=== PATIENT | female | born 1980 | race Caucasian/White ===

== ENCOUNTER 2016-09-11 18:11 | Emergency (ER) | payer BC, MEDICAID ==
[2011-12-23 06:38] VITALS: BMI 22.5
[2016-09-11 19:05] LABS: BASOPHILS 0.3 % (0-2); EOSINOPHILS 1.5 % (0-7); HEMOGLOBIN 12.5 g/dL (12-16); IMMATURE GRANULOCYTES 0.2 % (0-5); LYMPHOCYTES 48.9 % (15-50); MCHC 33.8 g/dL (31.0-37.0); MCV 100.5 fL (80.0-100.0); MEAN PLATELET VOLUME 9.4 fL (7.4-10.4); NEUTROPHILS 40.1 % (40-80); PLATELET COUNT 384 10x3/uL (130-400); RBC 3.68 10x6/uL (4.00-5.40); RDW 13.6 % (11.5-14.5); WBC 8.7 10x3/uL (4.8-10.8)
[2016-09-11 19:14] LABS: HCG SERUM NEGATIVE (NEGATIVE)
[2016-09-11 19:27] LABS: ALBUMIN 4.1 g/dL (3.4-5.0); ALKALINE PHOSPHATASE 43 U/L (46-116); ALT (SGPT) 18 U/L (10-68); CALC OSMOLALITY 276 mosm/kg (275-300); CALCIUM 9.1 mg/dL (8.5-10.1); CHLORIDE - SERUM 104 mmol/L (98-107); CREATININE - SERUM 0.6 mg/dL (0.6-1.3); GLUCOSE 87 mg/dL (74-106); PROTEIN - SERUM 6.9 g/dL (6.4-8.2); SODIUM 138 mmol/L (136-145); UREA NITROGEN 17 mg/dL (7-18); eGFR NON AFRICAN AMERICAN > 90 mL/min (90-120)
[2016-09-11 19:29] LABS: POTASSIUM - SERUM 3.9 mmol/L (3.5-5.1)
[2016-09-11 19:45] LABS: APPEARANCE CLEAR (CLEAR); BILIRUBIN NEGATIVE (NEGATIVE); COLOR YELLOW (YELLOW); GLUCOSE NEGATIVE (NEGATIVE); KETONE NEGATIVE (NEGATIVE); LEUKOCYTE ESTERASE NEGATIVE (NEGATIVE); NITRITE NEGATIVE (NEGATIVE); PROTEIN NEGATIVE (NEGATIVE); UROBILINOGEN NORMAL (NORMAL)
[2016-09-11 19:47] LABS: BACTERIA FEW /hpf (NONE SEEN); EPITHELIAL CELLS 0-5 /hpf (0-5); RED CELLS - URINE 0-5 /hpf (0-5); WHITE CELLS - URINE OCC /hpf (0-5)
== END 2016-09-11 20:50 | disposition home or self-care (01) ==
LOC: D.ER 18:11
PROVIDERS: Emergency Medicine; Nurse Practitioner Family
DX: R10.9 Unspecified abdominal pain (principal); K59.00 Constipation, unspecified; K50.90 Crohn's disease, unspecified, without complications

== ENCOUNTER 2016-12-26 03:14 | Emergency (ER) | payer MEDICAID ==
[2011-12-23 06:38] VITALS: BMI 22.5
[2016-12-26 03:36] LABS: BASOPHILS 0.1 % (0-2); EOSINOPHILS 0 % (0-7); HEMATOCRIT 35.8 % (36.0-48.0); IMMATURE GRANULOCYTES 0.2 % (0-5); LYMPHOCYTES 6.9 % (15-50); MCHC 33.5 g/dL (31.0-37.0); MCV 98.4 fL (80.0-100.0); MEAN PLATELET VOLUME 10.1 fL (7.4-10.4); MONOCYTES 3.4 % (2-11); NEUTROPHILS 89.4 % (40-80); PLATELET COUNT 380 10x3/uL (130-400); RBC 3.64 10x6/uL (4.00-5.40); RDW 12.2 % (11.5-14.5); WBC 12.9 10x3/uL (4.8-10.8)
[2016-12-26 03:49] LABS: HCG SERUM NEGATIVE (NEGATIVE)
[2016-12-26 03:54] LABS: ALBUMIN 3.7 g/dL (3.4-5.0); ALKALINE PHOSPHATASE 52 U/L (46-116); ALT (SGPT) 17 U/L (10-68); CALC OSMOLALITY 279 mosm/kg (275-300); CALCIUM 8.6 mg/dL (8.5-10.1); CARBON DIOXIDE 23.1 mmol/L (21.0-32.0); CHLORIDE - SERUM 105 mmol/L (98-107); CREATININE - SERUM 0.8 mg/dL (0.6-1.3); GLUCOSE 155 mg/dL (74-106); POTASSIUM - SERUM 4.2 mmol/L (3.5-5.1); PROTEIN - SERUM 6.5 g/dL (6.4-8.2); SODIUM 138 mmol/L (136-145); UREA NITROGEN 16 mg/dL (7-18); eGFR NON AFRICAN AMERICAN 86 mL/min (90-120)
== END 2016-12-26 05:34 | disposition home or self-care (01) ==
LOC: D.ER 03:14
PROVIDERS: Emergency Medicine
DX: K50.90 Crohn's disease, unspecified, without complications (principal)

== ENCOUNTER 2017-01-24 21:53 | Emergency (ER) | payer MEDICAID ==
[2011-12-23 06:38] VITALS: BMI 22.5
[2017-01-24 23:08] LABS: BASOPHILS 0.3 % (0-2); EOSINOPHILS 1.3 % (0-7); HEMATOCRIT 37.8 % (36.0-48.0); HEMOGLOBIN 12.9 g/dL (12-16); IMMATURE GRANULOCYTES 0.3 % (0-5); LYMPHOCYTES 47.1 % (15-50); MCH 32.4 pg (26.0-34.0); MCHC 34.1 g/dL (31.0-37.0); MEAN PLATELET VOLUME 9.8 fL (7.4-10.4); MONOCYTES 6.6 % (2-11); NEUTROPHILS 44.4 % (40-80); PLATELET COUNT 332 10x3/uL (130-400); RBC 3.98 10x6/uL (4.00-5.40); RDW 12.4 % (11.5-14.5); WBC 6.8 10x3/uL (4.8-10.8)
[2017-01-24 23:23] LABS: ALBUMIN 4.2 g/dL (3.4-5.0); ALKALINE PHOSPHATASE 49 U/L (46-116); ALT (SGPT) 19 U/L (10-68); AMYLASE - SERUM 69 U/L (25-115); CALC OSMOLALITY 279 mosm/kg (275-300); CALCIUM 9.3 mg/dL (8.5-10.1); CARBON DIOXIDE 25.2 mmol/L (21.0-32.0); CHLORIDE - SERUM 106 mmol/L (98-107); CREATININE - SERUM 0.7 mg/dL (0.6-1.3); GLUCOSE 93 mg/dL (74-106); LIPASE 414 U/L (73-393); PROTEIN - SERUM 7.1 g/dL (6.4-8.2); SODIUM 139 mmol/L (136-145); UREA NITROGEN 17 mg/dL (7-18); eGFR NON AFRICAN AMERICAN > 90 mL/min (90-120)
[2017-01-25 01:14] LABS: APPEARANCE CLEAR (CLEAR); BILIRUBIN NEGATIVE (NEGATIVE); COLOR YELLOW (YELLOW); GLUCOSE NEGATIVE (NEGATIVE); KETONE NEGATIVE (NEGATIVE); LEUKOCYTE ESTERASE NEGATIVE (NEGATIVE); NITRITE NEGATIVE (NEGATIVE); PROTEIN NEGATIVE (NEGATIVE); UROBILINOGEN NORMAL (NORMAL)
== END 2017-01-25 01:30 | disposition home or self-care (01) ==
LOC: D.ER 21:53
PROVIDERS: Family Medicine
DX: R19.7 Diarrhea, unspecified (principal); K50.918 Crohn's disease, unspecified, with other complication

== ENCOUNTER 2017-01-30 20:17 | Emergency (ER) | payer MEDICAID ==
[2011-12-23 06:38] VITALS: BMI 22.5
[2017-01-30 20:40] LABS: BASOPHILS 0.2 % (0-2); EOSINOPHILS 1.6 % (0-7); HEMATOCRIT 39.4 % (36.0-48.0); HEMOGLOBIN 13.1 g/dL (12-16); IMMATURE GRANULOCYTES 0.7 % (0-5); LYMPHOCYTES 37.7 % (15-50); MCH 32.1 pg (26.0-34.0); MCHC 33.2 g/dL (31.0-37.0); MCV 96.6 fL (80.0-100.0); MEAN PLATELET VOLUME 9.8 fL (7.4-10.4); MONOCYTES 9.8 % (2-11); PLATELET COUNT 320 10x3/uL (130-400); RBC 4.08 10x6/uL (4.00-5.40); RDW 12.7 % (11.5-14.5); WBC 9.9 10x3/uL (4.8-10.8)
[2017-01-30 21:02] LABS: APPEARANCE CLEAR (CLEAR); BILIRUBIN NEGATIVE (NEGATIVE); COLOR YELLOW (YELLOW); GLUCOSE NEGATIVE (NEGATIVE); KETONE NEGATIVE (NEGATIVE); NITRITE NEGATIVE (NEGATIVE); PROTEIN NEGATIVE (NEGATIVE); UROBILINOGEN NORMAL (NORMAL)
[2017-01-30 21:04] LABS: WHITE CELLS - URINE 0-5 /hpf (0-5)
[2017-01-30 21:06] LABS: BACTERIA FEW /hpf (NONE SEEN); HCG URINE NEGATIVE (NEGATIVE)
[2017-01-30 21:07] LABS: ALBUMIN 3.8 g/dL (3.4-5.0); ANION GAP 13.3 mmol/L (8-16); BILIRUBIN - TOTAL 0.26 mg/dL (0.2-1.3); CARBON DIOXIDE 23.8 mmol/L (21.0-32.0); POTASSIUM - SERUM 4.1 mmol/L (3.5-5.1)
== END 2017-01-30 22:42 | disposition home or self-care (01) ==
LOC: D.ER 20:17
PROVIDERS: Family Medicine
DX: K50.918 Crohn's disease, unspecified, with other complication (principal)

== ENCOUNTER 2017-02-05 19:58 | Emergency (ER) | payer MEDICAID ==
[2011-12-23 06:38] VITALS: BMI 22.5
[2017-02-05 20:57] LABS: BASOPHILS 0.2 % (0-2); EOSINOPHILS 1.7 % (0-7); HEMATOCRIT 37.3 % (36.0-48.0); HEMOGLOBIN 12.4 g/dL (12-16); IMMATURE GRANULOCYTES 0.7 % (0-5); MCH 32.1 pg (26.0-34.0); MCHC 33.2 g/dL (31.0-37.0); MCV 96.6 fL (80.0-100.0); MEAN PLATELET VOLUME 9.6 fL (7.4-10.4); MONOCYTES 11.2 % (2-11); NEUTROPHILS 51.2 % (40-80); PLATELET COUNT 286 10x3/uL (130-400); RBC 3.86 10x6/uL (4.00-5.40); RDW 13.3 % (11.5-14.5); WBC 9.1 10x3/uL (4.8-10.8)
[2017-02-05 21:08] LABS: HCG SERUM NEGATIVE (NEGATIVE)
[2017-02-05 21:12] LABS: ALBUMIN 3.6 g/dL (3.4-5.0); ANION GAP 10.3 mmol/L (8-16); BILIRUBIN - TOTAL 0.26 mg/dL (0.2-1.3); CALCIUM 8.5 mg/dL (8.5-10.1); CARBON DIOXIDE 27.8 mmol/L (21.0-32.0); CREATININE - SERUM 1.1 mg/dL (0.6-1.3); POTASSIUM - SERUM 4.1 mmol/L (3.5-5.1); PROTEIN - SERUM 6.8 g/dL (6.4-8.2)
[2017-02-05 21:39] LABS: APPEARANCE CLEAR (CLEAR); BILIRUBIN NEGATIVE (NEGATIVE); COLOR YELLOW (YELLOW); GLUCOSE NEGATIVE (NEGATIVE); KETONE NEGATIVE (NEGATIVE); NITRITE NEGATIVE (NEGATIVE); PROTEIN NEGATIVE (NEGATIVE); UROBILINOGEN NORMAL (NORMAL)
[2017-02-05 21:45] LABS: EPITHELIAL CELLS 0-5 /hpf (0-5); RED CELLS - URINE 0-5 /hpf (0-5)
[2017-02-05 21:46] LABS: BACTERIA FEW /hpf (NONE SEEN)
== END 2017-02-06 01:40 | disposition home or self-care (01) ==
LOC: D.ER 19:58
PROVIDERS: Family Medicine
DX: R10.9 Unspecified abdominal pain (principal); K50.919 Crohn's disease, unspecified, with unspecified complications

== ENCOUNTER 2017-03-29 17:46 | Emergency (ER) | payer MEDICAID ==
[2011-12-23 06:38] VITALS: BMI 22.5
[2017-03-29 18:48] LABS: BASOPHILS 0.6 % (0-2); EOSINOPHILS 17.1 % (0-7); HEMATOCRIT 37.4 % (36.0-48.0); HEMOGLOBIN 12.6 g/dL (12-16); IMMATURE GRANULOCYTES 0.3 % (0-5); LYMPHOCYTES 37.5 % (15-50); MCH 31.8 pg (26.0-34.0); MCHC 33.7 g/dL (31.0-37.0); MCV 94.4 fL (80.0-100.0); MONOCYTES 8.2 % (2-11); NEUTROPHILS 36.3 % (40-80); RBC 3.96 10x6/uL (4.00-5.40); RDW 13.2 % (11.5-14.5); WBC 10.8 10x3/uL (4.8-10.8)
[2017-03-29 18:59] LABS: PLATELET COUNT 377 10x3/uL (130-400)
[2017-03-29 19:05] LABS: ALBUMIN 3.9 g/dL (3.4-5.0); ALKALINE PHOSPHATASE 55 U/L (46-116); ALT (SGPT) 18 U/L (10-68); BILIRUBIN - TOTAL 0.32 mg/dL (0.2-1.3); CALC OSMOLALITY 275 mosm/kg (275-300); CALCIUM 8.7 mg/dL (8.5-10.1); CARBON DIOXIDE 25.7 mmol/L (21.0-32.0); CHLORIDE - SERUM 101 mmol/L (98-107); CREATININE - SERUM 0.6 mg/dL (0.6-1.3); GLUCOSE 93 mg/dL (74-106); POTASSIUM - SERUM 3.8 mmol/L (3.5-5.1); PROTEIN - SERUM 6.8 g/dL (6.4-8.2); SODIUM 137 mmol/L (136-145); UREA NITROGEN 18 mg/dL (7-18); eGFR NON AFRICAN AMERICAN > 90 mL/min (90-120)
[2017-03-29 20:19] LABS: AMYLASE - SERUM 48 U/L (25-115); LIPASE 199 U/L (73-393)
[2017-03-29 22:07] LABS: APPEARANCE CLEAR (CLEAR); BILIRUBIN NEGATIVE (NEGATIVE); COLOR YELLOW (YELLOW); GLUCOSE NEGATIVE (NEGATIVE); KETONE NEGATIVE (NEGATIVE); NITRITE NEGATIVE (NEGATIVE); PROTEIN NEGATIVE (NEGATIVE); UROBILINOGEN NORMAL (NORMAL)
[2017-03-29 22:09] LABS: BACTERIA MANY /hpf (NONE SEEN); HCG URINE NEGATIVE (NEGATIVE); RED CELLS - URINE 0-5 /hpf (0-5)
== END 2017-03-29 23:26 | disposition home or self-care (01) ==
LOC: D.ER 17:46
PROVIDERS: Emergency Medicine; Family Medicine
DX: K50.90 Crohn's disease, unspecified, without complications (principal); N39.0 Urinary tract infection, site not specified

== ENCOUNTER 2017-04-15 20:37 | Emergency (ER) | payer MEDICAID ==
[2011-12-23 06:38] VITALS: BMI 22.5
[2017-04-15 21:19] LABS: BASOPHILS 0.5 % (0-2); EOSINOPHILS 21.1 % (0-7); HEMATOCRIT 34.2 % (36.0-48.0); HEMOGLOBIN 11.5 g/dL (12-16); IMMATURE GRANULOCYTES 0.1 % (0-5); LYMPHOCYTES 36.2 % (15-50); MCH 31.9 pg (26.0-34.0); MCHC 33.6 g/dL (31.0-37.0); MCV 94.7 fL (80.0-100.0); MEAN PLATELET VOLUME 9.7 fL (7.4-10.4); MONOCYTES 8.3 % (2-11); NEUTROPHILS 33.8 % (40-80); PLATELET COUNT 369 10x3/uL (130-400); RBC 3.61 10x6/uL (4.00-5.40); RDW 13.4 % (11.5-14.5); WBC 8.5 10x3/uL (4.8-10.8)
[2017-04-15 21:33] LABS: ALBUMIN 3.4 g/dL (3.4-5.0); ALKALINE PHOSPHATASE 41 U/L (46-116); ALT (SGPT) 16 U/L (10-68); BILIRUBIN - TOTAL 0.28 mg/dL (0.2-1.3); CALC OSMOLALITY 281 mosm/kg (275-300); CALCIUM 8.5 mg/dL (8.5-10.1); CARBON DIOXIDE 26.2 mmol/L (21.0-32.0); CHLORIDE - SERUM 107 mmol/L (98-107); CREATININE - SERUM 0.6 mg/dL (0.6-1.3); GLUCOSE 95 mg/dL (74-106); POTASSIUM - SERUM 4.1 mmol/L (3.5-5.1); PROTEIN - SERUM 5.9 g/dL (6.4-8.2); SODIUM 140 mmol/L (136-145); UREA NITROGEN 20 mg/dL (7-18); eGFR NON AFRICAN AMERICAN > 90 mL/min (90-120)
[2017-04-15 22:11] LABS: HCG SERUM NEGATIVE (NEGATIVE)
[2017-04-15 22:35] LABS: APPEARANCE CLEAR (CLEAR); BILIRUBIN NEGATIVE (NEGATIVE); COLOR YELLOW (YELLOW); GLUCOSE NEGATIVE (NEGATIVE); KETONE NEGATIVE (NEGATIVE); NITRITE NEGATIVE (NEGATIVE); PROTEIN NEGATIVE (NEGATIVE); SPECIFIC GRAVITY 1.015 (1.005-1.020); UROBILINOGEN NORMAL (NORMAL)
== END 2017-04-15 23:15 | disposition home or self-care (01) ==
LOC: D.ER 20:37
PROVIDERS: Family Medicine; Physician Assistant
DX: Z87.19 Personal history of other diseases of the digestive system (principal); R10.32 Left lower quadrant pain; R10.31 Right lower quadrant pain

== ENCOUNTER 2017-04-30 19:19 | Emergency (ER) | payer MEDICAID ==
[2017-04-30 20:21] LABS: BASOPHILS 0.4 % (0-2); EOSINOPHILS 9.2 % (0-7); HEMATOCRIT 38.9 % (36.0-48.0); HEMOGLOBIN 13.1 g/dL (12-16); LYMPHOCYTES 39.9 % (15-50); MCH 31.7 pg (26.0-34.0); MCHC 33.7 g/dL (31.0-37.0); MCV 94.2 fL (80.0-100.0); NEUTROPHILS 43.5 % (40-80); RBC 4.13 10x6/uL (4.00-5.40); RDW 13.3 % (11.5-14.5); WBC 7.7 10x3/uL (4.8-10.8)
[2017-04-30 20:23] LABS: PLATELET COUNT 168 10x3/uL (130-400)
[2017-04-30 20:29] LABS: ALBUMIN 3.9 g/dL (3.4-5.0); ALKALINE PHOSPHATASE 53 U/L (46-116); ALT (SGPT) 20 U/L (10-68); BILIRUBIN - TOTAL 0.47 mg/dL (0.2-1.3); CALC OSMOLALITY 279 mosm/kg (275-300); CARBON DIOXIDE 27.5 mmol/L (21.0-32.0); CHLORIDE - SERUM 103 mmol/L (98-107); CREATININE - SERUM 0.5 mg/dL (0.6-1.3); GLUCOSE 90 mg/dL (74-106); POTASSIUM - SERUM 4.8 mmol/L (3.5-5.1); PROTEIN - SERUM 6.5 g/dL (6.4-8.2); SODIUM 140 mmol/L (136-145); UREA NITROGEN 15 mg/dL (7-18); eGFR NON AFRICAN AMERICAN > 90 mL/min (90-120)
== END 2017-04-30 21:37 | disposition home or self-care (01) ==
LOC: D.ER
PROVIDERS: Family Medicine
DX: Z87.19 Personal history of other diseases of the digestive system (principal); R10.9 Unspecified abdominal pain

== ENCOUNTER 2017-05-08 20:41 | Emergency (ER) | payer MEDICAID ==
[2011-12-23 06:38] VITALS: BMI 22.5
[2017-05-08 21:33] LABS: APPEARANCE CLEAR (CLEAR); COLOR YELLOW (YELLOW); GLUCOSE NEGATIVE (NEGATIVE); NITRITE NEGATIVE (NEGATIVE); PROTEIN NEGATIVE (NEGATIVE); SPECIFIC GRAVITY 1.015 (1.005-1.020)
[2017-05-08 21:34] LABS: BACTERIA FEW /hpf (NONE SEEN); BILIRUBIN NEGATIVE (NEGATIVE); EPITHELIAL CELLS 0-5 /hpf (0-5); KETONE NEGATIVE (NEGATIVE); RED CELLS - URINE OCC /hpf (0-5); UROBILINOGEN NORMAL (NORMAL); WHITE CELLS - URINE OCC /hpf (0-5)
[2017-05-08 21:50] LABS: BASOPHILS 0.3 % (0-2); EOSINOPHILS 2.6 % (0-7); HEMATOCRIT 38.6 % (36.0-48.0); HEMOGLOBIN 13.2 g/dL (12-16); IMMATURE GRANULOCYTES 0.4 % (0-5); LYMPHOCYTES 41.4 % (15-50); MCH 32.3 pg (26.0-34.0); MCHC 34.2 g/dL (31.0-37.0); MCV 94.4 fL (80.0-100.0); MEAN PLATELET VOLUME 9.6 fL (7.4-10.4); MONOCYTES 7.1 % (2-11); NEUTROPHILS 48.2 % (40-80); RBC 4.09 10x6/uL (4.00-5.40); RDW 13.1 % (11.5-14.5)
[2017-05-08 21:51] LABS: PLATELET COUNT 344 10x3/uL (130-400)
[2017-05-08 22:03] LABS: HCG SERUM NEGATIVE (NEGATIVE)
== END 2017-05-08 22:17 | disposition home or self-care (01) ==
LOC: D.ER 20:41
PROVIDERS: Family Medicine
DX: K50.90 Crohn's disease, unspecified, without complications (principal)

== ENCOUNTER 2017-06-05 18:23 | Emergency (ER) | payer MEDICAID ==
[2011-12-23 06:38] VITALS: BMI 22.5
[2017-06-05 19:03] LABS: BASOPHILS 0.3 % (0-2); EOSINOPHILS 1.5 % (0-7); HEMATOCRIT 35.9 % (36.0-48.0); HEMOGLOBIN 12.1 g/dL (12-16); IMMATURE GRANULOCYTES 0.1 % (0-5); LYMPHOCYTES 32.4 % (15-50); MCH 31.3 pg (26.0-34.0); MCHC 33.7 g/dL (31.0-37.0); MEAN PLATELET VOLUME 9.6 fL (7.4-10.4); MONOCYTES 8.8 % (2-11); NEUTROPHILS 56.9 % (40-80); PLATELET COUNT 294 10x3/uL (130-400); RBC 3.86 10x6/uL (4.00-5.40); RDW 13.1 % (11.5-14.5); WBC 7.5 10x3/uL (4.8-10.8)
== END 2017-06-05 19:40 | disposition home or self-care (01) ==
LOC: D.ER 18:23
PROVIDERS: Emergency Medicine
DX: K50.90 Crohn's disease, unspecified, without complications (principal)

== ENCOUNTER 2017-06-21 16:26 | Emergency (ER) | payer MEDICAID ==
[2011-12-23 06:38] VITALS: BMI 22.5
[2017-06-21 16:52] LABS: HEMATOCRIT 37.8 % (36.0-48.0); HEMOGLOBIN 12.6 g/dL (12-16); LYMPHOCYTES 28.3 % (15-50); MCH 30.9 pg (26.0-34.0); MCHC 33.3 g/dL (31.0-37.0); MCV 92.6 fL (80.0-100.0); MEAN PLATELET VOLUME 9.7 fL (7.4-10.4); NEUTROPHILS 63.8 % (40-80); PLATELET COUNT 319 10x3/uL (130-400); RBC 4.08 10x6/uL (4.00-5.40); RDW 13.7 % (11.5-14.5); WBC 8.5 10x3/uL (4.8-10.8)
[2017-06-21 17:14] LABS: ALBUMIN 4.1 g/dL (3.4-5.0); ALKALINE PHOSPHATASE 50 U/L (46-116); ALT (SGPT) 14 U/L (10-68); BILIRUBIN - TOTAL 0.46 mg/dL (0.2-1.3); CALC OSMOLALITY 279 mosm/kg (275-300); CALCIUM 9.3 mg/dL (8.5-10.1); CHLORIDE - SERUM 103 mmol/L (98-107); CREATININE - SERUM 0.8 mg/dL (0.6-1.3); GLUCOSE 92 mg/dL (74-106); PROTEIN - SERUM 7.1 g/dL (6.4-8.2); SODIUM 139 mmol/L (136-145); UREA NITROGEN 18 mg/dL (7-18); eGFR NON AFRICAN AMERICAN 86 mL/min (90-120)
[2017-06-21 17:18] LABS: HCG SERUM NEGATIVE (NEGATIVE)
== END 2017-06-21 19:02 | disposition home or self-care (01) ==
LOC: D.ER 16:26
PROVIDERS: Family Medicine; Physician Assistant Medical
DX: K50.919 Crohn's disease, unspecified, with unspecified complications (principal)